=== PATIENT | male | born 1985 | race Caucasian/White ===

== ENCOUNTER 2017-06-26 20:16 | Emergency (ER) | payer OTHER ==
[~2017-06-26] VITALS: Ht 172.7 cm; Wt 83.1 kg
[~2017-06-26 20:16] MED LIST: AMOX500C2 PO
[2017-06-26 20:40] VITALS: Ht 172.7 cm; Wt 83.1 kg
[2017-06-26] MEDS ORDERED: DIPHTH/TET/ACEL PERTUSS (ADULT) 0.5 ML VIAL IM* ONE (21:30)
[2017-06-26] MEDS ORDERED: HYDROCODONE/APAP (10/325) TAB PO ONE (21:30)
--- NOTE | 2017-06-26 21:45 | ERD ---
ER Documentation Chief Complaint Chief Complaint "a 70 pound weight fell on my right hand" right fourth finger with small la HPI 31-year-old male presents here in emergency department for complaints of right fourth finger nail hematoma, and pain after a 70 pound weight fell on his finger today. Patient describes the pain as throbbing pain, 6/10 scale, worse upon touching the area. Patient denies any deformity. Patient denies any fever or chills. Unknown last tetanus immunization. Patient did not take any medication for pain. ROS All systems reviewed and are negative except as per history of present illness. Medications Home Meds Active Scripts Amoxicillin* (Amoxicillin*) 500 Mg Cap, 500 MG PO TID for 7 Days, CAP Prov:KEDAR NGUYEN PA-C 01/27/15 Allergies Allergies: Coded Allergies: No Known Allergy (Unverified , 01/27/15) PMhx/Soc Medical and Surgical Hx: pt denies Medical Hx History of Surgery: Yes (appendectomy) Hx Alcohol Use: Yes (occassional) Hx Substance Use: No Hx Tobacco Use: No Smoking Status: Current some day smoker FmHx Family History: No coronary disease, No diabetes, No other Physical Exam Vitals Vital Signs Date Time Temp Pulse Resp B/P Pulse Ox O2 Delivery O2 Flow Rate FiO2 06/26/17 20:40 97.3 65 18 132/86 100 Physical Exam GENERAL: The patient is well developed and appropriate for usual state of health, in no apparent distress. CHEST: Clear to auscultation bilaterally. There are no rales, wheezes or rhonchi. HEART: Regular rate and rhythm. No murmurs, clicks, rubs or gallops. No S3 or S4. ABDOMEN: Soft, nontender and nondistended. Good bowel sounds. No rebound or guarding. No gross peritonitis. No gross organomegaly or masses. No Beckett sign or McBurney point tenderness. BACK: No midline or flank tenderness. EXTREMITIES: Noted subungual hematoma in the right fourth fingernail, with swelling noted in the tip of the finger, tender on palpation, able to do full range of motion without any restriction. Equal pulses bilaterally. There is no peripheral clubbing, cyanosis or edema. No focal swelling or erythema. Full range of motion. Grossly neurovascularly intact. NEURO: Alert and oriented. Cranial nerves 2-12 intact. Motor strength in all 4 extremities with 5/5 strength. Sensation grossly intact. Normal speech and gait. SKIN: There is no apparent rash or petechia. The skin is warm and dry. HEMATOLOGIC AND LYMPHATIC: There is no evidence of excessive bruising or lymphedema. No gross cervical, axillary, or inguinal lymphadenopathy. Results 24 hrs Current Medications Medications (Trade) Dose Ordered Sig/Kimberly Route PRN Reason Start Time Stop Time Status Last Admin Dose Admin Diphtheria/ Tetanus/Acell Pertussis (Adacel) 0.5 ml ONCE ONCE IM* 06/26/17 21:30 06/26/17 21:31 DC 06/26/17 21:33 Acetaminophen/ Hydrocodone Bitart ([place] ()) 1 tab ONCE ONCE PO 06/26/17 21:30 06/26/17 21:31 DC 06/26/17 21:35 Cefazolin Sodium (Ancef) 1 gm ONCE ONCE IM 06/26/17 22:30 06/26/17 22:31 DC 06/26/17 22:43 Tdap was given to prevent tetanus. Patient tolerated medication well. Patient was given medication for pain here in emergency department, after treatment, patient verbalized feeling much better. Patient's pain is improved. Ancef to prevent infection. PROCEDURE: XR Finger. CLINICAL INDICATION: Trauma. Pain. TECHNIQUE: Three views of the right fourth digit are available for review. COMPARISON: None available FINDINGS: There is a mildly displaced tuft fracture of the fourth distal phalanx with surrounding soft tissue swelling. Joint spaces are maintained. Alignment is intact. RPTAT: AA IMPRESSION: Mildly displaced tuft fracture of the fourth distal phalanx with soft tissue swelling. .Claudia Lee MD, Date Time Electronically viewed and signed by .Claudia Lee MD, on 06/26/2017 22: 12 .T/ CC: SURAJ DIEZ PSYCHOLOGY PHYSICIAN Procedures/MDM Procedure note: After patient's verbal consent, the area was cleaned with diluted Betadine, after cleaning the area, puncture wound was done on the nail to release the pressure from the blood inside the nail bed from a subungual hematoma. Patient tolerated procedure well. Verbalized feeling much better afterwards. A finger splint was applied afterwards. Medical Decision Making: Patient's pain is most likely consistent with a tuft fracture and subungual hematoma noted on the right fourth finger.. There is no suspicion for neurovascular compromise. Patient has intact sensation and circulation of the affected extremity. There is low suspicion for septic arthritis. Patient does not have any fever. Radiology exams of the affected area does not show any dislocation. Disposition: Home. Patient is given prescription for ibuprofen for pain [place]onier for severe pain, Keflex to prevent infection. Patient was advised to elevate the affected area and apply ice on affected area. Patient was advised that if symptoms are worse, numbness, tingling, high fever, unable to move joint, worsening symptoms, to return to emergency department immediately. Otherwise, patient is advised to follow up with the primary care doctor in 5-7 days for reevaluation of symptoms. He was advised to see hand specialist for further evaluation and management Disclaimer: Inadvertent spelling and grammatical errors are likely due to EHR/ dictation software use and do not reflect on the overall quality of patient care. Also, please note that the electronic time recorded on this note does not necessarily reflect the actual time of the patient encounter. Departure Diagnosis: Primary Impression: Closed fracture of tuft of distal phalanx of finger Additional Impression: Subungual hematoma of right ring finger Condition: Stable Patient Instructions: Fracture, Finger (Closed), Subungual Hematoma Additional Instructions: Patient is given prescription for ibuprofen for pain [place]onier for severe pain, Keflex to prevent infection. Patient was advised to elevate the affected area and apply ice on affected area. Patient was advised that if symptoms are worse , numbness, tingling, high fever, unable to move joint, worsening symptoms, to return to emergency department immediately. Otherwise, patient is advised to follow up with the primary care doctor in 5-7 days for reevaluation of symptoms. He was advised to see hand specialist for further evaluation and management SURAJ DIEZ NP Jun 26, 2017 21:45
--- NOTE | 2017-06-26 22:13 | RADRPT ---
PROCEDURE: XR Finger. CLINICAL INDICATION: Trauma. Pain. TECHNIQUE: Three views of the right fourth digit are available for review. COMPARISON: None available FINDINGS: There is a mildly displaced tuft fracture of the fourth distal phalanx with surrounding soft tissue swelling. Joint spaces are maintained. Alignment is intact. RPTAT: AA IMPRESSION: Mildly displaced tuft fracture of the fourth distal phalanx with soft tissue swelling. .Claudia Lee MD, MD Date Time Electronically viewed and signed by .Claudia Lee MD, on 06/26/2017 22:12 .T/
[2017-06-26] MEDS ORDERED: CEFAZOLIN 1 GM INJ IM ONE (22:30)
[2017-06-26] MEDS ORDERED: CEPH-443 PO ×2 (23:28→23:40)
[2017-06-26] MEDS ORDERED: HYDR-906 PO (23:28)
[2017-06-26] MEDS ORDERED: IBUP-1542 PO ×2 (23:28→23:40)
[2017-06-27 00:06] VITALS: BP 139/100; PULSE 52; RESP 17; TEMP 98
== END 2017-06-27 00:09 | disposition home or self-care (01) ==
LOC: FTE 20:16
DX: S62.522A Displaced fracture of distal phalanx of left thumb, initial encounter for closed fracture (principal); F17.210 Nicotine dependence, cigarettes, uncomplicated; W20.8XXA Other cause of strike by thrown, projected or falling object, initial encounter; Y92.9 Unspecified place or not applicable; Z23 Encounter for immunization
CPT/HCPCS: 11740; 29130; 73140; 90471; 90715; 96372; J0690; Z7502; Z7610